=== PATIENT | female | born 2000 | race Two or more races ===

== ENCOUNTER 2022-01-29 17:23 | Emergency (ER) | payer OTHER ==
[~2022-01-29] VITALS: Ht 157.5 cm; Wt 68.0 kg
== END 2022-01-29 21:19 | disposition home or self-care (01) ==
LOC: ER 17:23
DX: O26.892 Other specified pregnancy related conditions, second trimester (principal); Z3A.18 18 weeks gestation of pregnancy; N89.8 Other specified noninflammatory disorders of vagina

== ENCOUNTER 2022-06-17 18:26 | Inpatient (IN) | payer OTHER ==
[~2022-06-17] VITALS: Ht 157.5 cm; Wt 80.3 kg
[~2022-06-17 18:26] MED LIST: PRENATAL TABLE1 EAC1
[2022-06-17] MEDS ORDERED: INTEGRA PLUS C1 EACH (18:35)
== END 2022-06-19 14:46 | disposition home or self-care (01) | DRG 807 ==
LOC: LDR 18:26 → OB/GYN 18:26
PROVIDERS: ADMIT Specialist; ATTEND Specialist
PROC: 10E0XZZ Delivery of Products of Conception, External Approach (ICD-10-PCS; principal; 2022-06-17)
PROC: 0HQ9XZZ Repair Perineum Skin, External Approach (ICD-10-PCS; 2022-06-17)
PROC: 4A1HXCZ Monitoring of Products of Conception, Cardiac Rate, External Approach (ICD-10-PCS; 2022-06-17)
DX: O70.0 First degree perineal laceration during delivery (principal); Z37.0 Single live birth; O99.824 Streptococcus B carrier state complicating childbirth; Z3A.37 37 weeks gestation of pregnancy; Z20.822 Contact with and (suspected) exposure to COVID-19